=== PATIENT | female | born 1945 | race Caucasian/White ===

== ENCOUNTER 2016-06-23 07:38 | Day surgery (SDC) | payer OTHER, MEDICARE ==
[2016-06-17 10:54] VITALS: BMI 28.2
--- NOTE | 2016-06-22 09:53 | HP ---
[facility] - Chief Complaint Chief Complaint: left knee pain - Past Medical History Allergies/Adverse Reactions: Allergies Allergy/AdvReac Type Severity Reaction Status Date / Time No Known Drug Allergies Allergy Verified 06/23/16 08:33 - Current Medications Current Medications: Home Medications Medication Instructions Recorded Atorvastatin Ca [Lipitor] 10 mg PO DAILY 06/17/16 RX: Amlodipine Besylate 5 mg PO DAILY 06/17/16 RX: Ferrous Sulfate 650 mg PO BID 06/17/16 Satellite Physical Exam - Physical Examination General Appearance: Well Nourished, Well Developed, Alert & Oriented x3 ENT: Clear Lung: Normal air movement Heart: Regular rate & rhythm Extremities: Other (left knee- + swelling, + ttp, decr rom, nvi xrays show severe tricompartmental djd) Neurological: Intact, Alert, Oriented Satellite Impression/Plan - Impression/Plan Impression: left knee medial djd Operative Procedure: left medial saundra ukr Date to be Performed: 06/23/16
[2016-06-23] MEDS ORDERED: ROPIVICAINE 0.2%/MORPH PF/KETOROLAC - 51ML DISP.SYRINGE IA ONE (07:42)
[2016-06-23] MEDS ORDERED: CEFAZOLIN 1 GM/D5W 50 ML IVPB ONE (08:11)
[2016-06-23] MEDS ORDERED: GABAPENTIN 300 MG CAPSULE (FP) PO ONE (08:11)
[2016-06-23] MEDS ORDERED: CELECOXIB 200 MG CAPSULE PO ONE (08:11)
[2016-06-23] MEDS ORDERED: TRANEXAMIC ACID 1000 MG/10 ML VIAL IVPUSH ONE (08:11)
[2016-06-23] MEDS ORDERED: ceFAZolin SODIUM 1 GM VIAL ONE (08:22)
[2016-06-23] MEDS ORDERED: KETOROLAC TROMETHAMINE 30 MG/1 ML VIAL ONE (08:22)
[2016-06-23] MEDS ORDERED: DEXAMETHASONE SOD PHOSPHATE 4 MG/1 ML VIAL ONE (08:22)
[2016-06-23] MEDS ORDERED: ONDANSETRON 4 MG/2 ML VIAL ONE (08:22)
[2016-06-23] MEDS ORDERED: ROPIVACAINE HCL 0.5% 30ML VIAL ONE (09:00)
[2016-06-23] MEDS ORDERED: DEXAMETHASONE SOD PHOSPHATE/PF 10 MG/ML SDV ONE (09:00)
[2016-06-23] MEDS ORDERED: MIDAZOLAM HCL 2 MG/2 ML SINGLE DOSE VIAL ONE ×2 (09:00→10:25)
[2016-06-23] MEDS ORDERED: TRANEXAMIC ACID 1000 MG/10 ML VIAL ONE (09:42)
[2016-06-23] MEDS ORDERED: PROPOFOL 20 ML ONE ×3 (09:48→11:49)
[2016-06-23] MEDS ORDERED: SUCCINYLCHOLINE CHLORIDE 200 MG/10 ML VIAL ONE (10:48)
[2016-06-23] MEDS ORDERED: ONDANSETRON 4 MG/2 ML VIAL IVPB PRN (12:20)
[2016-06-23] MEDS ORDERED: MAG HYDROX/AL HYDROX/SIMETH 30 ML UNIT-DOSE CUP PO PRN (12:20)
--- NOTE | 2016-06-23 12:25 | OP ---
Operative Note - Note: Operative Date: 06/23/16 (micheline) Pre-Operative Diagnosis: left knee medial djd Operation: left medial saundra ukr Post-Operative Diagnosis: Same as Pre-op Surgeon: Cong Campos Tire Builder Operator: Pedro Larsen Anesthesiologist/QUALITY ASSURANCE MONITOR FINAL: Talib Silva Anesthesia: Spinal, Local Specimens Removed: bone fragments Estimated Blood Loss (mls): 100 Operative Report Dictated: Yes
[2016-06-23] MEDS ORDERED: LACTATED RINGERS SOLUTION 1,000 ML IV SCH (12:30)
[2016-06-23] MEDS ORDERED: ACETAMINOPHEN 325 MG TABLET (FP) ONE (13:16)
[2016-06-23] MEDS ORDERED: ACETAMINOPHEN 325 MG TABLET (FP) PO ONE (13:17)
[2016-06-23] MEDS ORDERED: oxyCODONE HCL 5 MG TABLET PO PRN ×2 (14:33)
[2016-06-23] MEDS ORDERED: chlordiazePOXIDE HCL 25 MG CAPSULE PO PRN (14:35)
[2016-06-23] MEDS ORDERED: FOLIC ACID INJECTION - 1 MG, THIAMINE HCL 100 MG, MULTIVIT INJECTION ADULT 10 ML in SOD... IVPB ONE (14:38)
[2016-06-23] MEDS: chlordiazePOXIDE HCL 25 MG CAPSULE PO SCH ×2 (17:51→23:31)
[2016-06-23] MEDS: ACETAMINOPHEN 325 MG TABLET (FP) PO SCH ×2 (17:57→20:59)
[2016-06-23] MEDS: CEFAZOLIN 1 GM/D5W 50 ML IVPB SCH (18:53)
[2016-06-23] MEDS: SENNOSIDES/DOCUSATE COMBO (SENNA PLUS) TABLET (UD) PO SCH (21:05)
[2016-06-23] MEDS ORDERED: FERROUS SULFATE 650 MG PO SCH (22:00)
[2016-06-23] MEDS: GABAPENTIN 300 MG CAPSULE (FP) PO SCH (23:03)
[2016-06-24] MEDS: CEFAZOLIN 1 GM/D5W 50 ML IVPB SCH (02:07)
[2016-06-24] MEDS: ACETAMINOPHEN 325 MG TABLET (FP) PO SCH ×2 (05:04→08:31)
[2016-06-24] MEDS: chlordiazePOXIDE HCL 25 MG CAPSULE PO SCH (05:20)
[2016-06-24 05:36] VITALS: BP 103/65; PULSE 80; TEMP 97.6
--- NOTE | 2016-06-24 07:59 | PN ---
Progress Note (short form) - Note Progress Note: Ortho Pt seen and examined s/p left medial saundra ukr pod #1 Selected Entries 06/24/16 04:00 Temperature 97.6 F Pulse Rate 80 Respiratory 20 Rate Blood Pressure 103/65 dressing c/d/i, calf soft, nt rom 0-120, nvi a/p PT dvt ppx pain control d/c home today f/u in 1 week
[2016-06-24] MEDS ORDERED: ASPIRIN 325 MG TABLET PO SCH (08:00)
--- NOTE | 2016-06-24 08:00 | DS ---
Physical Examination Vital Signs: Vital Signs Temperature 97.6 F 06/24/16 04:00 Pulse Rate 80 06/24/16 04:00 Respiratory Rate 20 06/24/16 04:00 Blood Pressure 103/65 06/24/16 04:00 O2 Sat by Pulse Oximetry (%) 96 06/24/16 05:35 Discharge Summary Reason For Visit: OSTEOARTHRITIS Procedures: Principal: s/p left medial saundra ukr Hospital Course: admitted for elective left medial saundra ukr, uneventful post-op, stable for d/c Condition: Good - Instructions Diet, Activity, Other Instructions: Post-op Instructions-Partial Knee Replacement Call the office for a follow-up appointment in 1 week - [phone] Aspirin 325mg daily for 6 weeks. Pain medication was sent into your pharmacy. Apply Graduated Compression Stockings (TEDs) to both lower extremities- remove daily for hygiene ONLY Apply Sequential Compression Device (SCDs) to both Lower extremities remove for PT and hygiene ONLY Apply cold packs to affected area for 15 minutes every 2 hours. Physical Therapist will come to your home for the first 5 days. You will be set up with outpatient PT at your first post-operative visit. Patient may ambulate as tolerated-encourage self care (at least every 2-3 hours while awake) with walker or cane Maintain Aquacel (waterproof) dressing to operative wound (will be removed by surgeon at first office visit) Shower with Aquacel dressing in place-if Aquacel integrity compromised, remove and apply dry sterile dressing and notify Orthopedist. DO NOT SHOWER unless Orthopedists approves without Aquacel dressing CONTACT THE OFFICE FOR ANY CHANGE IN YOUR CONDITION (for example-fever greater than 102 degrees,excessive bleeding from operative site, purulent drainage, severe swelling or pain) GO TO THE EMERGENCY ROOM IF THERE IS A MEDICAL EMERGENCY Knee Precautions: * Keep a rolled towel under affected heel while in bed or chair (to keep knee in extension) * Keep affected leg elevated except during mealtimes * DO NOT PLACE PILLOW UNDER AFFECTED KNEE * If you have any questions, please do not hesitate to call the office - . Referrals: Cong Campos MD [Staff Physician] - Disposition: VNS/HOME HEALTH CARE - Home Medications Comprehensive Discharge Medication List: Ambulatory Orders Amlodipine Besylate 5 mg PO DAILY 06/17/16 Atorvastatin Ca [Lipitor] 10 mg PO DAILY 06/17/16 Ferrous Sulfate 650 mg PO BID 06/17/16 Aspirin [ASA -] 325 mg PO DAILY@0800 tablet 06/23/16 Oxycodone HCl/Acetaminophen [Percocet 5-325 mg Tablet -] 1 - 2 tab PO Q6H #50 tab MDD 8 06/23/16
--- NOTE | 2016-06-24 08:47 | SPEC ---
DATE OF OPERATION: 06/23/2016 OPERATION: Left medial unicompartmental knee replacement with robotic-assisted navigation (MAKOplasty) and patelloplasty. PREOPERATIVE DIAGNOSIS: Degenerative joint disease, left knee. POSTOPERATIVE DIAGNOSIS: Degenerative joint disease, left knee. SURGEON: Adrianne Campos M.D. PLAYER SERVICES REPRESENTATIVE: CARINE Beltre ANESTHESIA: Spinal and regional. CLOSURE: Left medial CHIKI components with a No. 4 femur, No. 4 tibia, 9 mm polyethylene, No. 1 Vicryl to fascia, 0 and 2-0 subcutaneous and 3-0 Monocryl subcuticular to skin with skin glue, 4-0 undyed Vicryl for pin sites. ESTIMATED BLOOD LOSS: Negligible. TOURNIQUET TIME: Approximately 25 minutes. COMPLICATIONS: None. CONDITION: To recovery room in stable condition. PROCEDURE: Patient was taken to the operating room. Spinal and femoral block anesthesia was administered by the anesthesiologist. IV Kefzol and TXA were administered prophylactically prior to the case. A well-padded pneumatic tourniquet was placed on the left proximal thigh. The left lower extremity was prepped and draped in the usual sterile fashion. A 6 cm longitudinal incision was made along the medial retinaculum from mid patella toward the tibial tubercle. Hemostasis was achieved using Bovie cautery. Sharp dissection was carried down to the level of the capsule, which was opened the entire length of incision. A subperiosteal dissection in the anterior medial proximal tibia. Periosteal elevator was used to facilitate this dissection. Partial fat pad excision was performed to gain visualization. A femoral and tibial checkpoint were malleted into place. Two bicortical pins were drilled through small stab incisions into the femur 1 handbreadth above the patella. Two bicortical pins were drilled into the tibia 1 handbreadth below the tibial tubercle through small stab incisions as well. To these, pins were attached to clamp and the navigation arrays. The knee was then registered with the navigation device by ascertaining the center of rotation of the hip, both the medial and lateral malleoli, at approximately 50 points on the tibia and femur. Registration was within CHIKI parameters, being less than half a millimeter. At this time, the medial osteophytes on both the femur and tibia were removed by use of rongeur. The knee was taken through a range of motion and with stressing the medial compartment open at 0, 30, 60, 90 and 120 degrees. Stress points were obtained in order to develop a flexion/extension and a tightness/looseness graph. The robotic navigation device obtained a virtual tracking of the knee and found that the traction was in excellent position. The components were manipulated virtually in order to obtain a flexion/extension, tightness/looseness graph which was then +/- 1 mm. The robot was then brought into the field and registered with the navigation device. The robot was then used to brandy the bone on both the femur and the tibia to the specifications and direction of the navigation device. All excess bone and osteophytes and cartilage were removed, including the medial meniscus. Care was taken to protect the MCL throughout the case. The trial components were then placed into the knee with the appropriate polyethylene plastic trial liner. The knee was taken through a range of motion and the graph on the navigation device was then used again to confirm ideal position of the components and ideal tightness/looseness of the components. The trial components were removed, along with the checkpoints and the array. The knee was exsanguinated with an Esmarch bandage and tourniquet inflated to 175 mmHg. The knee was post-antibiotic irrigated and then dried and then Avitene and Gelfoam were placed to aid in hemostasis. The real components were then cemented in using modern generation cement techniques with antibiotics, cement and pressurization. All excess cement was removed. The knee was thoroughly inspected to remove any excess cement and bone fragments. The real polyethylene component was then clipped into place. Range of motion revealed excellent range of motion and good tensioning throughout. The knee was post-antibiotic irrigated. The fascia was closed using 2-0 Vicryl interrupted suture. The tourniquet was deflated. Total tourniquet time was less than 30 minutes. Hemostasis was obtained. Another dose of TXA was administered. The subcutaneous was closed with 2-0 Vicryl, 3-0 Monocryl subcuticular for skin. A pain cocktail was infused throughout the soft tissue. The pin sites were irrigated and closed with 4-0 Vicryl and skin glue was used for all incisions. Sterile Aquacel dressing was placed on all incisions followed by a dressing from the toes to the thigh. Patient was transferred to the recovery room in stable condition. No complications. ADRIANNE CAMPOS M.D. MALISSA/[id number]
[2016-06-24] MEDS ORDERED: MULTIVITAMINS (DAILY MVI) TABLET (FP) PO SCH (10:00)
[2016-06-24] MEDS ORDERED: PANTOPRAZOLE 40 MG TABLET (FP) PO SCH (10:00)
[2016-06-24] MEDS ORDERED: amLODIPine BESYLATE 5 MG TABLET (FP) PO SCH (10:00)
[2016-06-24] MEDS: GABAPENTIN 300 MG CAPSULE (FP) PO SCH (10:24)
[2016-06-24] MEDS: SENNOSIDES/DOCUSATE COMBO (SENNA PLUS) TABLET (UD) PO SCH (10:24)
[2016-06-24] MEDS ORDERED: chlordiazePOXIDE HCL 25 MG CAPSULE PO SCH (17:00)
[2016-06-24] MEDS ORDERED: ATORVASTATIN CA 10 MG TABLET (FP) PO SCH (22:00)
[2016-06-25] MEDS ORDERED: chlordiazePOXIDE 5 MG CAPSULE PO SCH (17:00)
== END 2016-06-24 11:00 | disposition home health service (06) ==
LOC: FASU 07:38 → FM/S 08:11 → FASU 06-24 11:00
PROVIDERS: ATTEND Orthopaedic Surgery
PROC: 8E0YXBZ Computer Assisted Procedure of Lower Extremity (ICD-10-PCS; 2016-06-23)
PROC: 8E0Y0CZ Robotic Assisted Procedure of Lower Extremity, Open Approach (ICD-10-PCS; 2016-06-23)
PROC: 0SRD0L9 Replacement of Left Knee Joint with Medial Unicondylar Synthetic Substitute, Cemented, Open Approach (ICD-10-PCS; principal; 2016-06-23 10:55)
DX: M17.12 Unilateral primary osteoarthritis, left knee (principal)
CPT/HCPCS: 20985; 27446; C1776; S2900; 73560-TC-LT; 94760; 97116-GP; 97162-PG

== ENCOUNTER 2018-12-15 05:46 | Inpatient (IN) | payer OTHER, MEDICARE ==
[~2018-12-15 05:46] MED LIST: CEFAZOLIN 2 GM in DEXTROSE 5%-WATER - 50 ML IVPB ONE; CELECOXIB 200 MG CAPSULE PO ONE; ROPIVICAINE 0.2%/MORPH PF/KETOROLAC - 51ML DISP.SYRINGE IA ONE; TRANEXAMIC ACID 1000 MG/10 ML VIAL IVPUSH ONE
[2018-12-15] MEDS ORDERED: PANTOPRAZOLE 40 MG TABLET (FP) ONE (06:30)
[2018-12-15] MEDS ORDERED: oxyCODONE HCL 10 MG SUSTAINED ACTING TABLET ONE (06:30)
[2018-12-15] MEDS ORDERED: CELECOXIB 200 MG CAPSULE ONE (06:30)
[2018-12-15 07:02] VITALS: BMI 26.6
--- NOTE | 2018-12-15 07:12 | HP ---
Admitting History and Physical - Admission Chief Complaint: right hip osteoarthritis x years History of Present Illness: 73 year old female presents in regard to their right hip. Long-standing history of right hip osteoarthritis. Patient complains of pain, limited range of motion , difficulty ambulating, and difficulty with activities of daily living. Patient has failed conservative treatment options including PO medications, activity modification, injections, and exercise programs. At this point, patient like to proceed with surgical intervention, right total hip arthroplasty MAKOplasty. History Source: Patient - Past Medical History Cardiovascular: Yes: HTN, Hyperlipdemia ENT: Yes: Other (glaucoma) - Past Surgical History Additional Past Surgical History: See history & physical. - Advance Directives Advance Directives: Yes: Health Care Proxy - Smoking History Smoking history: Never smoked Have you smoked in the past 12 months: No - Alcohol/Substance Use Hx Alcohol Use: Yes (2-3 VODKA/DAY) Home Medications - Allergies Allergies/Adverse Reactions: Allergies Allergy/AdvReac Type Severity Reaction Status Date / Time No Known Drug Allergies AdvReac Verified 12/15/18 06:53 AQUACELL AdvReac Intermediate Hives Uncoded 12/15/18 06:53 - Home Medications Home Medications: Ambulatory Orders Atorvastatin Ca [Lipitor] 10 mg PO DAILY 06/17/16 Hydrochlorothiazide [Hctz -] 12.5 mg PO DAILY 12/12/18 Latanoprost/Pf [Latanoprost 0.005% Eye Drop] 7.5 ml OU HS 12/12/18 Review of Systems - Review of Systems Musculoskeletal: reports: Decreased ROM (right hip), Joint Pain (right hip) Physical Examination Vital Signs: Vital Signs Temperature 98 F 12/15/18 06:54 Pulse Rate 120 H 12/15/18 06:54 Respiratory Rate 16 12/15/18 06:54 Blood Pressure 138/82 12/15/18 06:54 O2 Sat by Pulse Oximetry (%) Constitutional: Yes: Well Nourished, No Distress Eyes: Yes: Conjunctiva Clear HENT: Yes: Atraumatic Neck: Yes: Supple Cardiovascular: Yes: Regular Rate and Rhythm Respiratory: Yes: Regular Gastrointestinal: Yes: Soft ...Rectal Exam: Yes: Deferred Musculoskeletal: Yes: Joint Stiffness (right hip) Assessment/Plan 73 year female presents in regard to their right hip. Long-standing history of right hip osteoarthritis. Patient complains of pain, limited range of motion, difficulty ambulating, and difficulty with activities of daily living. Patient has failed conservative treatment options including PO medications, activity modification, injections, and exercise programs. At this point, patient like to proceed with surgical intervention, right total hip arthroplasty MAKOplasty. Pros, cons, risks, benefits, and alternatives of a right total hip arthroplasty MAKOplasty were discussed with the patient at length. Patient confirms their understanding and consents to proceed with a right total hip arthroplasty MAKOplasty.
[2018-12-15] MEDS: PANTOPRAZOLE 40 MG TABLET (FP) PO ONE ×2 (07:35→12:19)
[2018-12-15] MEDS: oxyCODONE HCL 10 MG SUSTAINED ACTING TABLET PO ONE ×2 (07:35→12:19)
[2018-12-15] MEDS ORDERED: MIDAZOLAM HCL 2 MG/2 ML SINGLE DOSE VIAL ONE ×2 (07:36→07:59)
[2018-12-15] MEDS ORDERED: PROPOFOL 20 ML ONE ×3 (07:36→09:57)
[2018-12-15] MEDS ORDERED: TRANEXAMIC ACID 1000 MG/10 ML VIAL ONE ×4 (07:38→11:03)
[2018-12-15] MEDS ORDERED: VANCOMYCIN 1,000 MG VIAL (RESTRICTED TO ID ONLY) ONE (07:38)
[2018-12-15] MEDS ORDERED: ceFAZolin SODIUM 1 GM VIAL ONE ×2 (07:38→09:06)
[2018-12-15] MEDS ORDERED: DEXAMETHASONE SOD PHOSPHATE/PF 10 MG/ML SDV ONE (07:55)
[2018-12-15] MEDS ORDERED: ROPIVACAINE HCL 0.5% 30ML VIAL ONE (07:56)
[2018-12-15] MEDS ORDERED: EPINEPHrine/PF 1 MG/1 ML (1:1,000) AMPULE ONE (07:56)
[2018-12-15] MEDS ORDERED: BUPIVACAINE HCL/PF 0.5% (5 MG/ML) 30 ML VIAL IJ ONE (08:06)
[2018-12-15] MEDS ORDERED: PHENYLEPHRINE HCL 10 MG/1 ML SINGLE DOSE VIAL ONE (08:56)
[2018-12-15] MEDS ORDERED: DEXAMETHASONE SOD PHOSPHATE 4 MG/1 ML VIAL ONE (09:06)
[2018-12-15] MEDS ORDERED: METOPROLOL TARTRATE 5 MG/5 ML VIAL ONE (09:06)
[2018-12-15] MEDS ORDERED: ONDANSETRON 4 MG/2 ML VIAL ONE (09:06)
[2018-12-15] MEDS ORDERED: SODIUM CHLORIDE 0.9% P/F 10 ML VIAL IJ ONE (09:06)
[2018-12-15] MEDS ORDERED: ROPIVICAINE 0.2%/MORPH PF/KETOROLAC - 51ML DISP.SYRINGE IA ONE ×2 (09:37→10:51)
[2018-12-15] MEDS ORDERED: GUM MASTIC/STORAX/MSAL/ALCOHOL 1 DRP DROPSBTL MC ONE (10:10)
[2018-12-15] MEDS ORDERED: ACETAMINOPHEN INJECTION 100 ML IVPB ONE (11:16)
--- NOTE | 2018-12-15 11:45 | OP ---
Operative Note - Note: Operative Date: 12/15/18 Pre-Operative Diagnosis: Right hip osteoarthritis Operation: Right CHIKI TIM Post-Operative Diagnosis: Same as Pre-op Surgeon: Talib Brooks Toppiece Chopper: Rika Manriquez Anesthesia: Spinal Estimated Blood Loss (mls): 200
[2018-12-15] MEDS ORDERED: ACETAMINOPHEN 1000 MG/100 ML VIAL (NON FORMULARY) IVPB ONE (11:46)
[2018-12-15] MEDS ORDERED: MAG HYDROX/AL HYDROX/SIMETH 30 ML UNIT-DOSE CUP PO PRN (11:48)
[2018-12-15] MEDS ORDERED: ONDANSETRON 4 MG/2 ML VIAL IVPUSH PRN ×2 (11:48→11:49)
[2018-12-15] MEDS ORDERED: MAGNESIUM HYDROX 2400MG/30ML ORAL SUSPENSION 30 ML CUP PO PRN (11:48)
[2018-12-15] MEDS ORDERED: oxyCODONE HCL 5 MG TABLET PO PRN (11:49)
[2018-12-15] MEDS ORDERED: LACTATED RINGERS SOLUTION 1,000 ML IV SCH ×2 (12:00)
[2018-12-15] MEDS: traMADol HCL 50 MG TABLET PO SCH ×2 (12:20→17:29)
--- NOTE | 2018-12-15 12:23 | SPEC ---
DATE OF OPERATION: 12/15/2018 PREOPERATIVE DIAGNOSIS: Right hip osteoarthritis. POSTOPERATIVE DIAGNOSIS: Right hip osteoarthritis. PROCEDURE: Right total hip replacement with MAKOplasty robotic navigation. ATTENDING: Den Kahn MD PHARMACY BUYER: CARINE Emery ANESTHESIA: Spinal plus sedation. ESTIMATED BLOOD LOSS: 200 mL. COMPLICATIONS: None. DISPOSITION: The patient was transferred to the PACU in stable condition. IMPLANTS USED: Sagrario Accolade II size 4 femoral component, Sagrario Trident II size 52-mm acetabular component, 20 and 25 mm acetabular screws, MDM bipolar head ball and liner with inner +8 mm offset. INDICATIONS: This is a 73-year-old female who presented to the office complaining of severe right hip pain. She was seen and examined by Dr. Kahn and diagnosed with right hip osteoarthritis. The patient was initially treated nonoperatively with injections and medications and physical therapy but continued to have severe and ambulatory dysfunction. She was therefore indicated for a right total hip replacement. The risks, benefits and alternatives to the procedure were explained to the patient in great detail and she elected to proceed with the surgery. On the day of surgery, the patient was taken to the operating room and placed on the OR table. Spinal anesthesia was administered by the anesthesiologist. The patient was then positioned in the lateral decubitus position on the table and all bony prominences were padded. An axillary roll was placed. The operative hip was then prepped and draped in the usual sterile fashion and intravenous antibiotics were given for infection prophylaxis. A surgical time-out was then performed with the team, and the patients identity, procedure, side, availability of implants, and the administration of antibiotics were confirmed. An approximately 15-cm longitudinal incision was made through the skin centered on the greater trochanter of the hip. This dissection was carried down through the subcutaneous tissues to the deep fascia. This fascia was then incised and a Cobra was placed around the inferior femoral neck. Electrocautery was used to reflect the anterior 40% of the gluteus medius and minimus starting at the musculotendinous junction and leaving a cuff for closure. This was reflected to reveal the capsule of the hip joint. An anterior capsulectomy was performed and the femoral head and neck were visualized. Grade 4 changes were noted diffusely throughout the joint. At this point, three small stab incisions were made superior to the main incision along the iliac crest. Three self-drilling Steinmann pins were then placed and the [employer] pelvic array was attached. Reference points on the limb were then entered into the robotic device and the limb length deficiency, offset, and femoral neck resection level were then calculated by the software. The hip was then dislocated with traction and external rotation. An oscillating saw was used to make the femoral neck cut at the level previously templated, and the femoral head was removed. Attention was then turned to the acetabulum. Retractors were then placed around the acetabulum and the labrum was removed. An acetabular checkpoint pin and the [employer] software were used to register the contours of the acetabulum. The acetabulum was then reamed in a single stage to the preoperatively templated size using the David robotic arm. The appropriately sized cup was then impacted and had solid fixation as well as the preset inclination and version of 40 and 20 degrees, respectively. A polyethylene liner was then placed in the cup. Attention was then turned back to the femur, which was externally rotated for improved visualization. A femoral neck elevator was used to present the femoral neck cut, a box osteotome was used to enter the femoral canal, and a canal finder was used to go down the femoral shaft. The David broaches were used sequentially until the optimal scratch fit was achieved. This correlated with the preoperatively templated size. From here, several different offset head and neck configurations were tested until excellent stability and length were obtained. These measurements were quantified using the [employer] software. All trial components were then removed, the femur was copiously irrigated, and the final components were placed. Leg length and stability were checked again and found to be excellent. Irrigation was performed again. Wound closure was started by repairing the abductor muscles with a no. 2 FiberWire stitch in a Krackow configuration passed through bone tunnels in the greater trochanter and tied over a bony bridge. This repair was then reinforced with a 0 V-Loc 180 barbed suture. Next, no. 1 Polysorb and 0 V-Loc 180 were used to close the fascia. The deep subcutaneous tissue was closed with no. 1 Polysorb sutures, and 2-0 Polysorb was used for the superficial subcutaneous tissue. The skin was closed using both 3-0 V-Loc 90 suture in a running subcuticular fashion and SwiftSet skin adhesive. The David array and pins were removed from the iliac crest and the stab incision sites were irrigated and closed with 4-0 Polysorb sutures and SwiftSet skin adhesive. Once this was completed, a sterile dressing was applied. The patient was then awakened and taken to the PACU in stable condition. ADDENDUM: After final implants were placed, a 3-minute dilute Betadine lavage was performed. Following this, the wound was thoroughly irrigated with normal saline and wound closure was begun. In lieu of using Dermabond for final skin closure, we used Mastisol and Steri-Strips and then final sterile Aquacel dressing. The patient had had previous knee replacement surgery and had a reaction to the Dermabond skin glue. DEN KAHN M.D. BEBETO/[id number]
--- NOTE | 2018-12-15 15:31 | EKG ---
Test Reason : Blood Pressure : / mmHG Vent. Rate : 102 BPM Atrial Rate : 102 BPM P-R Int : 156 ms QRS Dur : 082 ms QT Int : 370 ms P-R-T Axes : 026 004 -07 degrees QTc Int : 482 ms SINUS TACHYCARDIA INFERIOR INFARCT (CITED ON OR BEFORE 01-DEC-2018) ABNORMAL ECG WHEN COMPARED WITH ECG OF 01-DEC-2018 09:40, NO SIGNIFICANT CHANGE WAS FOUND Confirmed by DARLENE CHEW, SEDA ([id number]) on 12/15/2018 3:30:58 PM Referred By: Talib Brooks Confirmed By:SEDA COLON MD
[2018-12-15] MEDS: KETOROLAC TROMETHAMINE 30 MG/1 ML VIAL IVPUSH SCH ×2 (17:33→22:15)
[2018-12-15] MEDS: CEFAZOLIN 2 GM/D5W 2 GM/50 ML ML IVPB SCH (17:33)
[2018-12-15] MEDS ORDERED: DEXAMETHASONE SOD PHOSPHATE 10 MG/1 ML VIAL IVPB ONE (20:00)
[2018-12-15] MEDS: SENNOSIDES/DOCUSATE COMBO (SENNA PLUS) TABLET (UD) PO SCH (21:23)
[2018-12-15] MEDS: GABAPENTIN 300 MG CAPSULE (FP) PO SCH (21:23)
[2018-12-15] MEDS: CELECOXIB 200 MG CAPSULE PO SCH (21:23)
[2018-12-15] MEDS: ASCORBIC ACID 500 MG TABLET (FP) PO SCH (21:23)
[2018-12-15] MEDS ORDERED: PT OWN MED DRAWER 7, Y5N ONE (21:24)
[2018-12-15] MEDS: LATANOPROST 0.005% OPHTH SOLN 2.5ML BOTTLE OU SCH (21:25)
[2018-12-15] MEDS ORDERED: PATIENT'S OWN MEDICATION (NON-FORMULARY) (Latanoprost/Pf [Latanoprost 0.005% Eye Drop] 7.5 OU SCH (22:00)
[2018-12-16] MEDS: CEFAZOLIN 2 GM/D5W 2 GM/50 ML ML IVPB SCH (01:38)
[2018-12-16] MEDS: KETOROLAC TROMETHAMINE 30 MG/1 ML VIAL IVPUSH SCH ×2 (06:02→12:00)
[2018-12-16] MEDS: traMADol HCL 50 MG TABLET PO SCH ×4 (06:03→17:51)
[2018-12-16 07:00] LABS: HEMATOCRIT 33.6 % (32.4-45.2); HEMOGLOBIN 11.4 GM/dl (10.7-15.3); MCH 35.3 pg (25.7-33.7); MCHC 33.8 g/dl (32.0-36.0); MEAN CELL VOLUME 104.4 fl (80-96); MEAN PLT VOLUME 8.1 fl (7.5-11.1); PLATELET COUNT 243 K/MM3 (134-434); RBC 3.22 M/mm3 (3.60-5.2); RDW 12.5 % (11.6-15.6); WHITE BLOOD COUNT 13.4 K/mm3 (4.0-10.8)
[2018-12-16 07:11] LABS: CALCIUM 8.6 mg/dl (8.5-10); POTASSIUM 3.9 mmol/L (3.5-5.1)
--- NOTE | 2018-12-16 09:17 | PN ---
Progress Note (short form) - Note Progress Note: Post op day#1.S/p right THR under spinal with paravertebral block uneventful.Patient stable and has pain score of 2/10.No any anesthesia related problem.Patient DC from the anesthesia care.
[2018-12-16] MEDS: SENNOSIDES/DOCUSATE COMBO (SENNA PLUS) TABLET (UD) PO SCH ×2 (09:27→21:43)
[2018-12-16] MEDS: oxyCODONE HCL 5 MG TABLET PO PRN (09:27)
[2018-12-16] MEDS: ASPIRIN 325 MG TABLET PO SCH (09:28)
[2018-12-16] MEDS: PANTOPRAZOLE 40 MG TABLET (FP) PO SCH (09:28)
[2018-12-16] MEDS: ASCORBIC ACID 500 MG TABLET (FP) PO SCH ×2 (09:28→21:42)
[2018-12-16] MEDS: HYDROCHLOROTHIAZIDE 12.5 MG CAPSULE (FP) PO SCH (09:28)
[2018-12-16] MEDS: MULTIVITAMINS (DAILY MVI) TABLET (FP) PO SCH (09:28)
[2018-12-16] MEDS: ATORVASTATIN CA 10 MG TABLET (FP) PO SCH (09:28)
--- NOTE | 2018-12-16 17:08 | DS ---
Physical Examination Vital Signs: Vital Signs Temperature 98.6 F 12/16/18 14:25 Pulse Rate 77 12/16/18 14:25 Respiratory Rate 16 12/16/18 14:25 Blood Pressure 123/63 12/16/18 14:25 O2 Sat by Pulse Oximetry (%) 95 12/16/18 14:25 Labs: CBC, BMP 12/16/18 06:53 12/16/18 06:53 Discharge Summary Reason For Visit: RIGHT HIP OSTEOARTHRITIS Current Active Problems Unilateral primary osteoarthritis, right hip (Acute) Procedures: Principal: Right CHIKI TIM Hospital Course: Admitted for elective surgery. Procedure performed without complications. Pt received postoperative antibiotic prophylaxis and DVT ppx. Ambulated with physical therapy. Stable for discharge home with outpatient followup. Condition: Stable - Instructions Diet, Activity, Other Instructions: Dr Brooks - Hip Replacement Instructions Keep the Aquacel dressing on until removed by Dr. Brooks in 2 weeks - it is antibacterial and waterproof and you can shower with it on. Call the office for a follow-up appointment with Dr. Brooks in 2 weeks. Take one Aspirin 325mg daily for 6 weeks to prevent blood clots in your legs. Take one Pantoprazole 40mg daily for 6 weeks to protect against heartburn and ulcers. Take Cephalexin (antibiotic) 3x/day for 10 days to help prevent skin infection. Take Celebrex 200mg daily for 30 days to reduce swelling and inflammation. Take a multivitamin, stool softener and extra Vitamin C supplement daily. For pain: *Mild pain (1-3/10): Take 1 Tramadol tablet every 4 hours as needed. Moderate pain (4-6/10): Take 1 Tramadol tablet and 1 Percocet tablet every 4 hours as needed. Severe pain (7-10/10): Take 1 Tramadol tablet and 2 Percocet tablets every 4 hours as needed. Activity: You can put as much weight on the operative leg as you want. For the first 6 weeks, all you need to do is walk around the house, go up/down stairs, and sit down/get up. After 6 weeks when everything is healed (and bone has grown into the implant) you will be sent for more intensive outpatient physical therapy. Always use a walker or cane for balance and to prevent falls. Expect to see swelling / bruising from the operative site all the way down to your toes. Wear the Compression stocking on the operative side during the day to minimize how much swelling there is in your foot/ankle. Don't wear the stocking at night. You don't have to wear the stocking on the other side. Disposition: VNS/HOME HEALTH CARE - Home Medications Comprehensive Discharge Medication List: Ambulatory Orders Atorvastatin Ca [Lipitor] 10 mg PO DAILY 06/17/16 Hydrochlorothiazide [Hctz -] 12.5 mg PO DAILY 12/12/18 Latanoprost/Pf [Latanoprost 0.005% Eye Drop] 7.5 ml OU HS 12/12/18 Ascorbic Acid [Vitamin C -] 500 mg PO BID tablet 12/16/18 Aspirin [ASA -] 325 mg PO DAILY@0800 tablet 12/16/18 Celecoxib [CeleBREX -] 200 mg PO DAILY #30 capsule 12/16/18 Cephalexin Monohydrate [Keflex -] 500 mg PO TID #30 capsule 12/16/18 Multivitamins [Multivit ([facility] Formulary)] 1 tab PO DAILY tab 12/16/18 Oxycodone HCl/Acetaminophen [Percocet 5-325 mg Tablet] 1 - 2 tab PO Q4H PRN #60 tablet MDD 10 12/16/18 Pantoprazole Sodium [Protonix -] 40 mg PO DAILY #40 tablet.ec 12/16/18 Sennosides/Docusate Sodium [Pericolace -] 2 tablet PO BID tablet 12/16/18 traMADol HCL [Ultram -] 50 mg PO Q4H PRN #60 tablet MDD 6 12/16/18
--- NOTE | 2018-12-16 19:49 | PN ---
Progress Note (short form) - Note Progress Note: Pt seen and examined. Doing very well. AVSS Selected Entries 12/16/18 18:00 Temperature 97.9 F Pulse Rate 72 Respiratory 16 Rate Blood Pressure 112/67 O2 Sat by Pulse 98 Oximetry (%) Oxygen Delivery Room Air Method Laboratory Tests 12/16/18 12/16/18 06:53 06:53 WBC 13.4 H Hgb 11.4 Hct 33.6 Plt Count 243 Sodium 132 L Potassium 3.9 Chloride 93 L Carbon Dioxide 31 Anion Gap 8 Creatinine 1.0 Random Glucose 261 H Calcium 8.6 Gen: NAD RLE: c/d/i, NVID A/P POD#1 s/p R TIM PT/OOB D/C home in AM
[2018-12-16] MEDS ORDERED: PT OWN MED DRAWER 7, Y5N ONE ×3 (21:28→21:52)
[2018-12-16] MEDS: GABAPENTIN 300 MG CAPSULE (FP) PO SCH (21:40)
[2018-12-16] MEDS: CELECOXIB 200 MG CAPSULE PO SCH (21:40)
[2018-12-16] MEDS: LATANOPROST 0.005% OPHTH SOLN 2.5ML BOTTLE OU SCH (21:42)
[2018-12-17] MEDS ORDERED: PT OWN MED DRAWER 7, Y5N ONE ×3 (00:06→06:21)
[2018-12-17] MEDS: traMADol HCL 50 MG TABLET PO SCH ×2 (00:08→06:15)
[2018-12-17 06:21] VITALS: BP 119/68; PULSE 77; TEMP 97.8
[2018-12-17] MEDS: ASPIRIN 325 MG TABLET PO SCH (08:10)
[2018-12-17 08:24] LABS: HEMATOCRIT 34.1 % (32.4-45.2); HEMOGLOBIN 11.7 GM/dl (10.7-15.3); MCH 35.4 pg (25.7-33.7); MCHC 34.2 g/dl (32.0-36.0); MEAN CELL VOLUME 103.7 fl (80-96); MEAN PLT VOLUME 8.9 fl (7.5-11.1); PLATELET COUNT 232 K/MM3 (134-434); RBC 3.29 M/mm3 (3.60-5.2); RDW 12.5 % (11.6-15.6); WHITE BLOOD COUNT 11.4 K/mm3 (4.0-10.8)
[2018-12-17] MEDS: SENNOSIDES/DOCUSATE COMBO (SENNA PLUS) TABLET (UD) PO SCH (09:15)
[2018-12-17] MEDS: ATORVASTATIN CA 10 MG TABLET (FP) PO SCH (09:15)
[2018-12-17] MEDS: HYDROCHLOROTHIAZIDE 12.5 MG CAPSULE (FP) PO SCH (09:15)
[2018-12-17] MEDS: GABAPENTIN 300 MG CAPSULE (FP) PO SCH (09:15)
[2018-12-17] MEDS: PANTOPRAZOLE 40 MG TABLET (FP) PO SCH (09:15)
[2018-12-17] MEDS: ASCORBIC ACID 500 MG TABLET (FP) PO SCH (09:15)
[2018-12-17] MEDS: CELECOXIB 200 MG CAPSULE PO SCH (09:15)
[2018-12-17] MEDS: MULTIVITAMINS (DAILY MVI) TABLET (FP) PO SCH (09:15)
[2018-12-17] MEDS: oxyCODONE HCL 5 MG TABLET PO PRN (09:30)
--- NOTE | 2018-12-26 09:43 | PATH ---
Surgical Pathology Report Patient Name: CHAPARRO GODWIN Med. Rec. #: [id number] /Age/Gender: 1945 (Age: 73) / F Account: [id number] Location: [facility] MED-SURG Taken: 12/15/2018 Received: 12/15/2018 Reported: 12/26/2018 Physicians: Talib Brooks M.D. Specimen(s) Received RIGHT FEMORAL HEAD Clinical History Right hip osteoarthritis Final Diagnosis FEMORAL HEAD, RIGHT, TOTAL HIP REPLACEMENT: DEGENERATIVE JOINT DISEASE. Electronically Signed Jyotsna Mcclain M.D. Gross Description Received in formalin, labeled "right femoral head," is a 4.8 x 4.5 x 3.5 cm. femoral head with a 0.7 cm portion of femoral neck. The margin of resection is smooth. The articular surface shows areas of eburnation and appears granular. The underlying trabecular bone is yellow and hard. A security systems sales representative section is submitted in one cassette, following decalcification. AE/12/19/2018 ebram/12/19/2018
== END 2018-12-17 09:50 | disposition home health service (06) | DRG 470 ==
LOC: FM/S 05:46
PROVIDERS: ADMIT Student in an Organized Health Care Education/Training Program; ATTEND Student in an Organized Health Care Education/Training Program
PROC: 8E0Y0CZ Robotic Assisted Procedure of Lower Extremity, Open Approach (ICD-10-PCS; 2018-12-15)
PROC: 0SR90JZ Replacement of Right Hip Joint with Synthetic Substitute, Open Approach (ICD-10-PCS; principal; 2018-12-15 09:17)
DX: M16.11 Unilateral primary osteoarthritis, right hip (principal); I10 Essential (primary) hypertension; E78.5 Hyperlipidemia, unspecified
CPT/HCPCS: 36415; 73502-TC-RT-FY; 73700-TC-RT; 80048; 85027; 88305-TC; 88311-TC; 93005; 94760; 97116-GP; 97163-GP; J0131; J1100